=== PATIENT | female | born 1960 | race Caucasian/White ===

== ENCOUNTER 2019-07-02 11:55 | Emergency (ER) | payer OTHER ==
[~2019-07-02] VITALS: Ht 165.1 cm; Wt 98.0 kg
[2019-07-02] MEDS ORDERED: PRISTIQ50 M1 PO (12:22)
[2019-07-02] MEDS ORDERED: LISINOPRIL2.5 MG PO (12:22)
[2019-07-02] MEDS ORDERED: LUMIGAN5 ML OPHTHALMIC (12:22)
[2019-07-02] MEDS ORDERED: ZANAFLEX4 MG PO (12:54)
[2019-07-02] MEDS ORDERED: NABUMETONE 750750 M1 PO (12:54)
[2019-07-02 13:01] VITALS: BP 193/89
== END 2019-07-02 13:01 | disposition home or self-care (01) ==
LOC: M.ERS 11:55
DX: S29.012A Strain of muscle and tendon of back wall of thorax, initial encounter (principal); S16.1XXA Strain of muscle, fascia and tendon at neck level, initial encounter; S39.012A Strain of muscle, fascia and tendon of lower back, initial encounter; S09.90XA Unspecified injury of head, initial encounter; I10 Essential (primary) hypertension; F32.9 Major depressive disorder, single episode, unspecified; Z90.710 Acquired absence of both cervix and uterus; V89.2XXA Person injured in unspecified motor-vehicle accident, traffic, initial encounter; Y93.89 Activity, other specified; Y92.89 Other specified places as the place of occurrence of the external cause; Y99.8 Other external cause status

== ENCOUNTER → 2019-08-10 | Outpatient (CLI) | payer OTHER ==
[~2019-08-10] MED LIST: LISINOPRIL2.5 MG PO; LUMIGAN5 ML OPHTHALMIC; NABUMETONE 750750 M1 PO; PRISTIQ50 M1 PO; ZANAFLEX4 MG PO
== END ==
LOC: M.RAD 11:44
DX: M19.011 Primary osteoarthritis, right shoulder (principal)

== ENCOUNTER → 2019-08-20 | Outpatient (CLI) | payer OTHER | LOC: M.MRI 10:56 | DX: M19.011 Primary osteoarthritis, right shoulder (principal); M75.81 Other shoulder lesions, right shoulder; M25.711 Osteophyte, right shoulder ==

== ENCOUNTER 2019-10-23 06:52 | Emergency (ER) | payer OTHER ==
[~2019-10-23] VITALS: Ht 165.1 cm; Wt 99.8 kg
[2019-10-23] MEDS ORDERED: LIPITOR10 MG PO (07:04)
[2019-10-23] MEDS ORDERED: LISINOPRIL-HCT1 EACH PO (07:04)
[2019-10-23 07:29] LABS: INFLUENZA A ANTIGEN Negative (Negative); INFLUENZA B ANTIGEN Negative (Negative)
[2019-10-23] MEDS ORDERED: PROMETH-CODEIN 65 ML PO (07:39)
[2019-10-23] MEDS ORDERED: TAMIFLU75 MG PO (07:39)
[2019-10-23 07:45] VITALS: BP 157/72
== END 2019-10-23 07:46 | disposition home or self-care (01) ==
LOC: M.ERS 06:52
PROVIDERS: Family Medicine
DX: B34.9 Viral infection, unspecified (principal); I10 Essential (primary) hypertension; F32.9 Major depressive disorder, single episode, unspecified; Z90.710 Acquired absence of both cervix and uterus

== ENCOUNTER 2020-04-29 18:57 | Emergency (ER) | payer OTHER ==
[~2020-04-29] VITALS: Ht 165.1 cm; Wt 96.2 kg
[~2020-04-29 18:57] MED LIST changes: +LIPITOR10 MG PO; +LISINOPRIL-HCT1 EACH PO; +PROMETH-CODEIN 65 ML PO; +TAMIFLU75 MG PO
[2020-04-29 21:14] VITALS: BP 151/76
== END 2020-04-29 21:14 | disposition home or self-care (01) ==
LOC: M.ERS 18:57
DX: S93.491A Sprain of other ligament of right ankle, initial encounter (principal); I10 Essential (primary) hypertension; Z79.899 Other long term (current) drug therapy; Z90.710 Acquired absence of both cervix and uterus; X50.1XXA Overexertion from prolonged static or awkward postures, initial encounter; Y93.89 Activity, other specified; Y92.89 Other specified places as the place of occurrence of the external cause; Y99.9 Unspecified external cause status

== ENCOUNTER 2020-07-28 08:35 | Emergency (ER) | payer OTHER ==
[~2020-07-28] VITALS: Ht 165.1 cm; Wt 98.4 kg
[2020-07-28] MEDS ORDERED: PROTONIX 20 MG20 MG PO (09:00)
[2020-07-28] MEDS ORDERED: HYOSCYAMINE0.125 MG PO (09:00)
[2020-07-28] MEDS ORDERED: LIPITOR 20 MG T20 M1 PO (09:01)
[2020-07-28] MEDS ORDERED: LISINOPRIL-HCT1 EACH PO (09:01)
[2020-07-28] MEDS ORDERED: DESVENLAFAXINE50 MG PO (09:01)
[2020-07-28] MEDS ORDERED: PREDNISONE 20 M20 M1 PO (10:37)
[2020-07-28] MEDS ORDERED: PEPCID40 MG PO (10:37)
[2020-07-28] MEDS ORDERED: ZYRTEC 10 MG TA10 MG PO (10:37)
[2020-07-28 10:46] VITALS: BP 141/67
== END 2020-07-28 10:47 | disposition home or self-care (01) ==
LOC: M.ERS 08:35
DX: L50.9 Urticaria, unspecified (principal); I10 Essential (primary) hypertension; Z90.710 Acquired absence of both cervix and uterus

== ENCOUNTER 2020-07-29 23:06 | Observation (INO) | payer OTHER ==
[~2020-07-29] VITALS: Ht 165.1 cm; Wt 98.4 kg
[~2020-07-29 23:06] MED LIST changes: +DESVENLAFAXINE50 MG PO; +HYOSCYAMINE0.125 MG PO; +LIPITOR 20 MG T20 M1 PO; +PEPCID40 MG PO; +PREDNISONE 20 M20 M1 PO; +PROTONIX 20 MG20 MG PO; +ZYRTEC 10 MG TA10 MG PO
[2020-07-29 23:13] VITALS: BP 176/86
[2020-07-29 23:50] LABS: ABSOLUTE BASOPHILS 0.1 thou/uL (0.0-0.2); ABSOLUTE LYMPHOCYTES 3.1 thou/uL (0.8-5.3); ABSOLUTE MONOCYTES 0.7 thou/uL (0.0-1.2); ABSOLUTE NEUTROPHILS 12.4 thou/uL (1.6-8.1); BASOPHILS 0.5 %; HEMATOCRIT 38.8 % (37.0-47.0); HEMOGLOBIN 12.9 gm/dL (12.0-15.0); MCHC 33.3 g/dL (28.0-37.0); MCV 93.2 fL (80.0-100.0); MONOCYTES 4.3 %; MPV 7.2 fl. (7.2-11.1); NUCLEATED RBCS 0 /100WBC; PLATELET COUNT* 277 thou/uL (150-400); POLYS 76.2 %; RBC 4.17 mil/uL (4.20-5.00); RDW-CV 13.9 % (10.5-14.5); WBC 16.3 thou/uL (4.0-11.0)
[2020-07-29 23:54] LABS: URINE BILIRUBIN NEGATIVE (Negative); URINE BLOOD NEGATIVE (Negative); URINE CLARITY CLEAR; URINE COLOR YELLOW; URINE GLUCOSE-RANDOM NEGATIVE (Negative); URINE KETONES NEGATIVE (Negative); URINE LEUKOCYTES-REFLEX NEGATIVE (Negative); URINE NITRITE-REFLEX NEGATIVE (Negative); URINE PROTEIN NEGATIVE (Negative); URINE SPECIFIC GRAVITY >= 1.030 (1.005-1.030); URINE UROBILINOGEN 0.2 E.U./dl (0.2-1.0)
[2020-07-29 23:57] LABS: CALCIUM 8.7 mg/dL (8.5-10.1); CREATININE 0.8 mg/dL (0.6-1.3)
[2020-07-30 00:01] LABS: ALBUMIN 3.3 g/dL (3.4-5.0); TOTAL BILIRUBIN 0.2 mg/dL (<0.1-1.0); TOTAL PROTEIN 6.7 g/dL (6.4-8.2)
[2020-07-30 00:07] LABS: POTASSIUM 2.7 mmol/L (3.5-5.1)
[2020-07-30 02:50] VITALS: BP 134/74
[2020-07-30 08:00] VITALS: BP 135/62
[2020-07-30 12:46] VITALS: BP 141/62
[2020-07-30 16:14] VITALS: BP 132/65
--- NOTE | 2020-07-30 17:08 | EKG ---
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 07/30/20 1708 2344 2344 Branden Rodriguez MD, [facility] /EPI
[2020-07-30 21:00] VITALS: BP 134/58
[2020-07-31 00:22] VITALS: BP 137/65
[2020-07-31 05:18] VITALS: BP 126/72
[2020-07-31 08:00] VITALS: BP 139/79
[2020-07-31 11:48] VITALS: BP 139/79
== END 2020-07-31 12:05 | disposition home or self-care (01) ==
LOC: M.ERS 23:06 → M.TBA-ER 07-30 01:55 → M.2W 07-30 02:01
PROVIDERS: Personal Emergency Response Attendant; ADMIT Internal Medicine; ATTEND Internal Medicine
DX: E86.0 Dehydration (principal); K58.9 Irritable bowel syndrome, unspecified; T78.40XA Allergy, unspecified, initial encounter; G43.909 Migraine, unspecified, not intractable, without status migrainosus; E87.6 Hypokalemia; I10 Essential (primary) hypertension; F32.9 Major depressive disorder, single episode, unspecified; F17.200 Nicotine dependence, unspecified, uncomplicated; Z79.899 Other long term (current) drug therapy; Z20.828 Contact with and (suspected) exposure to other viral communicable diseases; X58.XXXA Exposure to other specified factors, initial encounter

== ENCOUNTER 2021-06-09 17:34 | Emergency (ER) | payer OTHER ==
[~2021-06-09] VITALS: Ht 165.1 cm; Wt 97.5 kg
[2021-06-09] MEDS ORDERED: COZAAR 25 MG TA25 M1 PO (17:45)
[2021-06-09] MEDS ORDERED: NORVASC 2.5 MG2.5 M1 PO (17:45)
[2021-06-09 18:05] LABS: ABSOLUTE BASOPHILS 0.1 thou/uL (0.0-0.2); ABSOLUTE EOSINOPHILS 0.3 thou/uL (0.0-0.7); ABSOLUTE LYMPHOCYTES 3.6 thou/uL (0.8-5.3); ABSOLUTE MONOCYTES 0.6 thou/uL (0.0-1.2); ABSOLUTE NEUTROPHILS 4.9 thou/uL (1.6-8.1); BASOPHILS 1.1 %; EOSINOPHILS 3.4 %; HEMATOCRIT 39.7 % (37.0-47.0); HEMOGLOBIN 13.7 gm/dL (12.0-15.0); LYMPHOCYTES 37.8 %; MCH 31.3 pg (26.0-34.0); MCHC 34.5 g/dL (28.0-37.0); MCV 90.6 fL (80.0-100.0); MONOCYTES 6.2 %; MPV 7.4 fl. (7.2-11.1); NUCLEATED RBCS 0 /100WBC; PLATELET COUNT* 275 thou/uL (150-400); POLYS 51.5 %; RBC 4.39 mil/uL (4.20-5.00); RDW-CV 13.7 % (10.5-14.5); WBC 9.5 thou/uL (4.0-11.0)
[2021-06-09 18:12] LABS: CALCIUM 9.3 mg/dL (8.5-10.1); CREATININE 0.8 mg/dL (0.6-1.3); POTASSIUM 3.4 mmol/L (3.5-5.1)
[2021-06-09 18:17] LABS: ALBUMIN 3.5 g/dL (3.4-5.0); TOTAL BILIRUBIN 0.3 mg/dL (<0.1-1.0)
[2021-06-09] MEDS ORDERED: ACYCLOVIR 400400 MG PO (18:53)
[2021-06-09] MEDS ORDERED: PREDNISONE 20 M20 M1 PO (18:53)
[2021-06-09 19:05] VITALS: BP 109/45
--- NOTE | 2021-06-11 14:14 | EKG ---
[place] [address] ELECTROCARDIOGRAM REPORT Name: JOHN ARRIOLA Room: 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1960 Requested By: Brock Knutson Order Number: [id number] MD: Branden Rodriguez Measurements Intervals [place] Rate: 78 P: 44 MN: 189 QRS: 11 QRSD: 87 T: 33 QT: 375 QTc: 428 Interpretive Statements Sinus rhythm Low voltage, precordial leads Abnormal R-wave progression, early transition Compared to ECG 07/29/2020 23:44:26 No significant changes Electronically Signed On 06-11-2021 14:14:33 CDT by Branden Rodriguez [email or web address] <ELECTRONICALLY SIGNED> By: Branden Rodriguez MD, FACC 06/11/21 1414 1747 1747 Branden Rodriguez MD, [facility] /EPI
== END 2021-06-09 19:06 | disposition home or self-care (01) ==
LOC: M.ERS 17:34
PROVIDERS: Family Medicine
DX: G51.0 Bell's palsy (principal); I10 Essential (primary) hypertension; F32.9 Major depressive disorder, single episode, unspecified; E78.5 Hyperlipidemia, unspecified; Z90.710 Acquired absence of both cervix and uterus; Z90.49 Acquired absence of other specified parts of digestive tract; Z79.899 Other long term (current) drug therapy